=== PATIENT | male | born 1990 | race African-American/Black ===

== ENCOUNTER 2020-11-19 13:11 | Emergency (ER) | payer OTHER ==
[~2020-11-19] VITALS: Ht 180.3 cm; Wt 91.0 kg
[2020-11-19 13:19] VITALS: BP 130/99
[2020-11-19] MEDS ORDERED: CEFTRIAXONE SODIUM 250 MG/VIAL IM ONE (14:30)
[2020-11-19] MEDS ORDERED: AZITHROMYCIN 500 MG TABLET PO SCH (14:30)
[2020-11-19] MEDS ORDERED: AZITHROMYCIN 500 MG TABLET PO ONE (14:30)
[2020-11-19 16:04] LABS: *AMPHETAMINES SCREEN URINE PRESUMTIVE POSITIVE (NEGATIVE)
[2020-11-19 16:05] LABS: *BARBITURATES SCREEN URINE NEGATIVE (NEGATIVE); *BENZODIAZEPINES SCREEN URINE PRESUMTIVE POSITIVE (NEGATIVE); *COCAINE SCREEN URINE NEGATIVE (NEGATIVE); CANNABINOID URINE SCREEN NEGATIVE (NEGATIVE); METHADONE URINE SCREEN NEGATIVE (NEGATIVE); OPIATES URINE SCREEN NEGATIVE (NEGATIVE); PHENCYCLIDINE URINE SCREEN NEGATIVE (NEGATIVE)
[2020-11-22 10:11] LABS: NEISSERIA GONORRHOEAE NAA Negative (Negative)
== END 2020-11-19 15:22 | disposition home or self-care (01) ==
LOC: ER 13:11
DX: K12.0 Recurrent oral aphthae (principal); Z11.3 Encounter for screening for infections with a predominantly sexual mode of transmission
CPT/HCPCS: 80305; 87491; 87591; 96372; 99283; J0696